=== PATIENT | male | born 1960 | race Caucasian/White ===

== ENCOUNTER 2024-04-06 13:30 | Outpatient (CLI) | payer MEDICARE | END 2024-04-06 13:31 | disposition home or self-care (01) | LOC: CSHWCC 13:30 | PROVIDERS: ATTEND Nurse Practitioner Family | DX: E11.621 Type 2 diabetes mellitus with foot ulcer (principal); L97.512 Non-pressure chronic ulcer of other part of right foot with fat layer exposed; L97.522 Non-pressure chronic ulcer of other part of left foot with fat layer exposed | CPT/HCPCS: 29445 ==

== ENCOUNTER 2024-04-10 08:08 | Outpatient (CLI) | payer MEDICARE | END 2024-04-10 08:09 | disposition home or self-care (01) | LOC: CSHWCC 08:08 | PROVIDERS: ATTEND Nurse Practitioner Family | DX: E11.621 Type 2 diabetes mellitus with foot ulcer (principal); L97.512 Non-pressure chronic ulcer of other part of right foot with fat layer exposed; L97.522 Non-pressure chronic ulcer of other part of left foot with fat layer exposed | CPT/HCPCS: 11042 ==

== ENCOUNTER 2024-04-13 11:22 | Outpatient (CLI) | payer MEDICARE | END 2024-04-13 11:23 | disposition home or self-care (01) | LOC: CSHWCC 11:22 | PROVIDERS: ATTEND Nurse Practitioner Family | DX: E11.621 Type 2 diabetes mellitus with foot ulcer (principal); L97.512 Non-pressure chronic ulcer of other part of right foot with fat layer exposed; L97.522 Non-pressure chronic ulcer of other part of left foot with fat layer exposed | CPT/HCPCS: 29445; G0463; 99213 ==

== ENCOUNTER 2024-04-17 09:44 | Outpatient (CLI) | payer MEDICARE | END 2024-04-17 09:45 | disposition home or self-care (01) | LOC: CSHWCC 09:44 | PROVIDERS: ATTEND Nurse Practitioner Family | DX: E11.621 Type 2 diabetes mellitus with foot ulcer (principal); L97.512 Non-pressure chronic ulcer of other part of right foot with fat layer exposed | CPT/HCPCS: 11042 ==

== ENCOUNTER 2024-04-20 08:47 | Outpatient (CLI) | payer MEDICARE | END 2024-04-20 08:48 | disposition home or self-care (01) | LOC: CSHWCC 08:47 | PROVIDERS: ATTEND Nurse Practitioner Family | DX: E11.621 Type 2 diabetes mellitus with foot ulcer (principal); L97.512 Non-pressure chronic ulcer of other part of right foot with fat layer exposed | CPT/HCPCS: 29445 ==

== ENCOUNTER 2024-04-24 09:46 | Outpatient (CLI) | payer MEDICARE | END 2024-04-24 09:47 | disposition home or self-care (01) | LOC: CSHWCC 09:46 | PROVIDERS: ATTEND Nurse Practitioner Family | DX: E11.621 Type 2 diabetes mellitus with foot ulcer (principal); L97.512 Non-pressure chronic ulcer of other part of right foot with fat layer exposed | CPT/HCPCS: 11042 ==

== ENCOUNTER 2024-04-27 08:32 | Outpatient (CLI) | payer MEDICARE | END 2024-04-27 08:33 | disposition home or self-care (01) | LOC: CSHWCC 08:32 | PROVIDERS: ATTEND Nurse Practitioner Family | DX: E11.621 Type 2 diabetes mellitus with foot ulcer (principal); L97.512 Non-pressure chronic ulcer of other part of right foot with fat layer exposed | CPT/HCPCS: 29445; G0463; 99213 ==

== ENCOUNTER 2024-05-01 14:12 | Outpatient (CLI) | payer MEDICARE | END 2024-05-01 14:13 | disposition home or self-care (01) | LOC: CSHWCC 14:12 | PROVIDERS: ATTEND Nurse Practitioner Family | DX: E11.621 Type 2 diabetes mellitus with foot ulcer (principal); L97.512 Non-pressure chronic ulcer of other part of right foot with fat layer exposed | CPT/HCPCS: 11042 ==

== ENCOUNTER 2024-05-10 08:33 | Outpatient (CLI) | payer MEDICARE | END 2024-05-10 08:34 | disposition home or self-care (01) | LOC: CSHWCC 08:33 | PROVIDERS: ATTEND Nurse Practitioner Family | DX: E11.621 Type 2 diabetes mellitus with foot ulcer (principal); L97.512 Non-pressure chronic ulcer of other part of right foot with fat layer exposed | CPT/HCPCS: 11042 ==

== ENCOUNTER 2024-05-17 11:05 | Outpatient (CLI) | payer MEDICARE | END 2024-05-17 11:06 | disposition home or self-care (01) | LOC: CSHWCC 11:05 | PROVIDERS: ATTEND Nurse Practitioner Family | DX: E11.621 Type 2 diabetes mellitus with foot ulcer (principal); L97.512 Non-pressure chronic ulcer of other part of right foot with fat layer exposed | CPT/HCPCS: 29445; G0463; 99212 ==

== ENCOUNTER 2024-05-24 08:17 | Outpatient (CLI) | payer MEDICARE | END 2024-05-24 08:18 | disposition home or self-care (01) | LOC: CSHWCC 08:17 | PROVIDERS: ATTEND Nurse Practitioner Family | DX: E11.621 Type 2 diabetes mellitus with foot ulcer (principal); L97.512 Non-pressure chronic ulcer of other part of right foot with fat layer exposed | CPT/HCPCS: 29445; G0463; 99212 ==

== ENCOUNTER 2024-06-01 12:36 | Outpatient (CLI) | payer MEDICARE | END 2024-06-01 12:37 | disposition home or self-care (01) | LOC: CSHWCC 12:36 | PROVIDERS: ATTEND Nurse Practitioner Family | DX: E11.621 Type 2 diabetes mellitus with foot ulcer (principal); L97.512 Non-pressure chronic ulcer of other part of right foot with fat layer exposed | CPT/HCPCS: 11042 ==

== ENCOUNTER 2024-06-08 13:26 | Outpatient (CLI) | payer MEDICARE | END 2024-06-08 13:27 | disposition home or self-care (01) | LOC: CSHWCC 13:26 | PROVIDERS: ATTEND Nurse Practitioner Family | DX: E11.621 Type 2 diabetes mellitus with foot ulcer (principal); E11.622 Type 2 diabetes mellitus with other skin ulcer; L97.512 Non-pressure chronic ulcer of other part of right foot with fat layer exposed; L97.812 Non-pressure chronic ulcer of other part of right lower leg with fat layer exposed | CPT/HCPCS: 11042 ==

== ENCOUNTER 2024-06-15 08:21 | Outpatient (CLI) | payer MEDICARE | END 2024-06-15 08:22 | disposition home or self-care (01) | LOC: CSHWCC 08:21 | PROVIDERS: ATTEND Nurse Practitioner Family | DX: E11.621 Type 2 diabetes mellitus with foot ulcer (principal); L97.512 Non-pressure chronic ulcer of other part of right foot with fat layer exposed; E11.622 Type 2 diabetes mellitus with other skin ulcer; L97.812 Non-pressure chronic ulcer of other part of right lower leg with fat layer exposed | CPT/HCPCS: 11042 ==

== ENCOUNTER 2024-06-22 15:03 | Outpatient (CLI) | payer MEDICARE | END 2024-06-22 15:04 | disposition home or self-care (01) | LOC: CSHWCC 15:03 | PROVIDERS: ATTEND Family Medicine | DX: E11.621 Type 2 diabetes mellitus with foot ulcer (principal); L97.512 Non-pressure chronic ulcer of other part of right foot with fat layer exposed; L97.812 Non-pressure chronic ulcer of other part of right lower leg with fat layer exposed | CPT/HCPCS: 11042 ==

== ENCOUNTER 2024-06-29 10:38 | Outpatient (CLI) | payer MEDICARE | END 2024-06-29 10:39 | disposition home or self-care (01) | LOC: CSHWCC 10:38 | PROVIDERS: ATTEND Nurse Practitioner Family | DX: E11.621 Type 2 diabetes mellitus with foot ulcer (principal); L97.512 Non-pressure chronic ulcer of other part of right foot with fat layer exposed | CPT/HCPCS: 29445 ==

== ENCOUNTER 2024-07-06 12:11 | Outpatient (CLI) | payer MEDICARE | END 2024-07-06 12:12 | disposition home or self-care (01) | LOC: CSHWCC 12:11 | PROVIDERS: ATTEND Nurse Practitioner Family | DX: E11.621 Type 2 diabetes mellitus with foot ulcer (principal); L97.512 Non-pressure chronic ulcer of other part of right foot with fat layer exposed | CPT/HCPCS: 29445 ==

== ENCOUNTER 2024-07-13 13:52 | Outpatient (CLI) | payer MEDICARE | END 2024-07-13 13:53 | disposition home or self-care (01) | LOC: CSHWCC 13:52 | PROVIDERS: ATTEND Nurse Practitioner Family | DX: E11.621 Type 2 diabetes mellitus with foot ulcer (principal); L97.512 Non-pressure chronic ulcer of other part of right foot with fat layer exposed | CPT/HCPCS: 99212; G0463 ==

== ENCOUNTER 2025-06-24 10:12 | Inpatient (IN) | payer MEDICARE ==
[2025-06-24 11:50] LABS: #Basophils 0.08 10x3/uL (0.0-0.2); #Eosinophils 0.16 10x3/uL (0.0-0.5); #Monocytes 0.97 10x3/uL (0.0-1.1); #Neutrophils 4.56 10x3/uL (1.5-8.4); %Basophils 1.1 % (0.0-2.0); %Eosinophils 2.2 % (0.0-6.0); %Lymphocytes 19.1 % (18.0-47.0); %Monocytes 13.5 % (0.0-10.0); %Neutrophils 63.3 % (40.0-75.0); Hematocrit 43.8 % (38.8-50.0); Hemoglobin 15.6 g/dL (13.5-17.5); Mean Corpuscular Hemoglobin 32.2 pg (27.0-33.0); Mean Corpuscular Volume 90.3 fL (81.2-95.1); Platelet Count 151 10x3/uL (150-450); Red Blood Cell (RBC) Count 4.85 10x6/uL (4.32-5.72); White Blood Cell (WBC) Count 7.21 10x3/uL (3.5-10.5)
[2025-06-24 11:58] LABS: ALT (SGPT) 34 U/L (Less than 45); AST (SGOT) 44 U/L (11-34); Albumin 4.0 g/dL (3.1-4.5); Alkaline Phosphatase 81 U/L (40-110); Anion Gap 16 mmol/L (10-20); BUN (Urea Nitrogen) 18 mg/dL (8.4-25.7); Bilirubin, Total 0.4 mg/dL (0.3-1.2); Calc. Creatinine Clearance 0 mL/min (70-130); Calcium 9.5 mg/dL (7.8-10.44); Carbon Dioxide 22 mmol/L (23-31); Chloride 103 mmol/L (98-107); Globulin 3.6 g/dL (2.4-3.5); Glucose 190 mg/dL (80-115); Magnesium 1.5 mg/dL (1.6-2.6); Potassium 3.1 mmol/L (3.5-5.1); Sodium 138 mmol/L (136-145)
[2025-06-24] MEDS ORDERED: Ondansetron PF 4 MG/2 ML Vial IVP PRN (14:32)
[2025-06-24] MEDS ORDERED: hydrALAZINE 20 MG/ML VIAL SLOW IVP PRN (14:32)
[2025-06-24] MEDS ORDERED: Senokot S 8.6-50 MG TAB PO PRN (14:32)
[2025-06-24] MEDS ORDERED: Glucagon 1 MG/ML KIT IM PRN (16:13)
[2025-06-24] MEDS ORDERED: Dextrose 50% Abboject 50 ML SYRINGE SLOW IVP PRN (16:13)
[2025-06-24] MEDS ORDERED: Electrolyte Replacement Protocol 1 EACH FS SCH (16:15)
[2025-06-24] MEDS ORDERED: Potassium Chloride 20 MEQ in Premix 1 BAG IVPB PRN (16:30)
[2025-06-24] MEDS ORDERED: PHOS-NAK 1 PKT PACK PO PRN (16:30)
[2025-06-24] MEDS ORDERED: Magnesium Sulfate In Water 4 GM in Premix 1 BAG IVPB PRN (16:30)
[2025-06-24 17:17] LABS: ALT (SGPT) 35 U/L (Less than 45); AST (SGOT) 49 U/L (11-34); Albumin 4.3 g/dL (3.1-4.5); Alkaline Phosphatase 77 U/L (40-110); Anion Gap 16 mmol/L (10-20); BUN (Urea Nitrogen) 14 mg/dL (8.4-25.7); Bilirubin, Total 0.6 mg/dL (0.3-1.2); Calc. Creatinine Clearance 0 mL/min (70-130); Calcium 9.7 mg/dL (7.8-10.44); Carbon Dioxide 25 mmol/L (23-31); Chloride 104 mmol/L (98-107); Globulin 3.8 g/dL (2.4-3.5); Glucose 100 mg/dL (80-115); Potassium 3.1 mmol/L (3.5-5.1); Sodium 142 mmol/L (136-145)
[2025-06-24 17:36] LABS: Syphilis Antibody Index 0.07 S/CO (<1.00 Non-Reactive)
[2025-06-24 18:40] VITALS: BMI 38.1
[2025-06-24] MEDS: Acetaminophen 325 MG TAB PO PRN (20:24)
[2025-06-24] MEDS: Melatonin 3 MG TAB PO PRN (20:25)
[2025-06-25 04:19] LABS: #Basophils 0.07 10x3/uL (0.0-0.2); #Eosinophils 0.17 10x3/uL (0.0-0.5); #Monocytes 0.72 10x3/uL (0.0-1.1); #Neutrophils 3.83 10x3/uL (1.5-8.4); %Basophils 1.1 % (0.0-2.0); %Eosinophils 2.7 % (0.0-6.0); %Lymphocytes 23.0 % (18.0-47.0); %Monocytes 11.5 % (0.0-10.0); %Neutrophils 61.2 % (40.0-75.0); Hematocrit 40.8 % (38.8-50.0); Hemoglobin 14.6 g/dL (13.5-17.5); Mean Corpuscular Hemoglobin 32.4 pg (27.0-33.0); Mean Corpuscular Volume 90.7 fL (81.2-95.1); Platelet Count 149 10x3/uL (150-450); Red Blood Cell (RBC) Count 4.50 10x6/uL (4.32-5.72); White Blood Cell (WBC) Count 6.26 10x3/uL (3.5-10.5)
[2025-06-25 04:26] LABS: Anion Gap 15 mmol/L (10-20); BUN (Urea Nitrogen) 13 mg/dL (8.4-25.7); Calc. Creatinine Clearance 208 mL/min (70-130); Calcium 9.1 mg/dL (7.8-10.44); Carbon Dioxide 27 mmol/L (23-31); Cardiac Risk 6.0 (Less than 4.5); Chloride 100 mmol/L (98-107); Cholesterol 179 mg/dl (< 200 Desired); Glucose 142 mg/dL (80-115); HDL Cholesterol 30 mg/dL (>60 Neg Risk); Potassium 2.8 mmol/L (3.5-5.1); Sodium 139 mmol/L (136-145); Triglycerides 546 mg/dL (Less than 150)
[2025-06-25] MEDS ORDERED: Magnesium 2 GM/50 ML(in water) 2 GM in Premix 1 BAG IVPB PRN (06:05)
[2025-06-25] MEDS: Multivit, Therapeutic 1 TAB PO SCH (09:07)
[2025-06-25] MEDS: Folic Acid 1 MG TAB PO SCH (09:07)
[2025-06-25] MEDS ORDERED: Iopamidol 370 76% 100 ML VIAL ONE (10:38)
[2025-06-25] MEDS: Aspirin 81 mg Enteric Coated Tablet PO SCH (12:14)
[2025-06-25] MEDS: Valsartan 80 MG TAB PO SCH (12:14)
[2025-06-25] MEDS: Lantus 1000 UNITS/10 ML VIAL SC SCH (12:15)
[2025-06-25] MEDS: NIFEdipine XL 30 MG ER.TAB PO SCH (15:59)
[2025-06-26 07:26] LABS: #Basophils 0.06 10x3/uL (0.0-0.2); #Eosinophils 0.15 10x3/uL (0.0-0.5); #Monocytes 0.72 10x3/uL (0.0-1.1); #Neutrophils 3.52 10x3/uL (1.5-8.4); %Basophils 1.1 % (0.0-2.0); %Eosinophils 2.7 % (0.0-6.0); %Lymphocytes 20.4 % (18.0-47.0); %Monocytes 12.7 % (0.0-10.0); %Neutrophils 62.2 % (40.0-75.0); Hematocrit 43.0 % (38.8-50.0); Hemoglobin 15.3 g/dL (13.5-17.5); Mean Corpuscular Hemoglobin 32.6 pg (27.0-33.0); Mean Corpuscular Volume 91.7 fL (81.2-95.1); Platelet Count 162 10x3/uL (150-450); Red Blood Cell (RBC) Count 4.69 10x6/uL (4.32-5.72); White Blood Cell (WBC) Count 5.65 10x3/uL (3.5-10.5)
[2025-06-26 08:11] LABS: Anion Gap 15 mmol/L (10-20); BUN (Urea Nitrogen) 17 mg/dL (8.4-25.7); Calc. Creatinine Clearance 188 mL/min (70-130); Calcium 9.4 mg/dL (7.8-10.44); Carbon Dioxide 26 mmol/L (23-31); Chloride 102 mmol/L (98-107); Glucose 174 mg/dL (80-115); Magnesium 1.8 mg/dL (1.6-2.6); Potassium 3.3 mmol/L (3.5-5.1); Sodium 140 mmol/L (136-145)
[2025-06-26] MEDS: Aspirin 81 mg Enteric Coated Tablet PO SCH (08:42)
[2025-06-26] MEDS: NIFEdipine XL 60 MG ER.TAB PO SCH (08:42)
[2025-06-26] MEDS: Valsartan 80 MG TAB PO SCH (08:43)
[2025-06-26] MEDS ORDERED: DULoxetine 30 MG CAP PO SCH (10:30)
[2025-06-26] MEDS ORDERED: Carvedilol 12.5 MG TAB PO SCH ×2 (10:30→17:00)
[2025-06-26] MEDS: Carvedilol 12.5 MG TAB PO SCH ×2 (12:13→17:27)
[2025-06-26] MEDS: Pantoprazole 40 MG DR.TAB PO SCH (13:08)
[2025-06-26 13:51] LABS: Potassium 3.6 mmol/L (3.5-5.1)
[2025-06-26] MEDS: Acetaminophen/Codeine 30-300mg Tablet PO PRN (17:26)
[2025-06-27 05:12] LABS: #Basophils 0.07 10x3/uL (0.0-0.2); #Eosinophils 0.15 10x3/uL (0.0-0.5); #Monocytes 0.94 10x3/uL (0.0-1.1); #Neutrophils 4.59 10x3/uL (1.5-8.4); %Basophils 1.0 % (0.0-2.0); %Eosinophils 2.1 % (0.0-6.0); %Lymphocytes 20.6 % (18.0-47.0); %Monocytes 12.9 % (0.0-10.0); %Neutrophils 63.0 % (40.0-75.0); Hematocrit 41.5 % (38.8-50.0); Hemoglobin 14.6 g/dL (13.5-17.5); Mean Corpuscular Hemoglobin 32.5 pg (27.0-33.0); Mean Corpuscular Volume 92.4 fL (81.2-95.1); Platelet Count 144 10x3/uL (150-450); Red Blood Cell (RBC) Count 4.49 10x6/uL (4.32-5.72); White Blood Cell (WBC) Count 7.28 10x3/uL (3.5-10.5)
[2025-06-27 05:29] LABS: Anion Gap 14 mmol/L (10-20); BUN (Urea Nitrogen) 23 mg/dL (8.4-25.7); Calc. Creatinine Clearance 148 mL/min (70-130); Calcium 9.5 mg/dL (7.8-10.44); Carbon Dioxide 27 mmol/L (23-31); Chloride 102 mmol/L (98-107); Glucose 160 mg/dL (80-115); Potassium 3.8 mmol/L (3.5-5.1); Sodium 139 mmol/L (136-145)
[2025-06-27] MEDS: DULoxetine 30 MG CAP PO SCH (09:02)
[2025-06-27] MEDS: Pantoprazole 40 MG DR.TAB PO SCH (09:03)
[2025-06-27] MEDS: Carvedilol 12.5 MG TAB PO SCH (10:54)
[2025-06-27] MEDS: Thiamine 100 MG TAB PO SCH (15:55)
[2025-06-27 16:12] VITALS: BP 158/96; TEMP 97.8
[2025-06-27] MEDS ORDERED: Carvedilol 25 MG TAB PO SCH (17:00)
== END 2025-06-27 16:42 | disposition left against medical advice (07) | DRG 312 ==
LOC: CSHERS 10:12 → CSHERHOLD 13:11 → CSHTELE 17:54 → OBSVTOIN 06-25 14:34
PROVIDERS: ADMIT Family Medicine; ATTEND Internal Medicine
PROC: 5A09457 Assistance with Respiratory Ventilation, 24-96 Consecutive Hours, Continuous Positive Airway Pressure (ICD-10-PCS; principal; 2025-06-26)
DX: R55 Syncope and collapse (principal); I10 Essential (primary) hypertension; E11.9 Type 2 diabetes mellitus without complications; E78.5 Hyperlipidemia, unspecified; K21.9 Gastro-esophageal reflux disease without esophagitis; E66.9 Obesity, unspecified; Z53.29 Procedure and treatment not carried out because of patient's decision for other reasons; Z88.2 Allergy status to sulfonamides; Z79.4 Long term (current) use of insulin; Z79.82 Long term (current) use of aspirin; Z79.899 Other long term (current) drug therapy; Z68.38 Body mass index [BMI] 38.0-38.9, adult
CPT/HCPCS: 36415; 36416; 70450; 70496; 70498; 70551; 71045; 72125; 80048; 80053; 80061; 83735; 84100; 85025; 86780; 93005; 93306; 94660; J1815; J3411; Q9967

== ENCOUNTER 2025-07-03 12:47 | Emergency (ER) | payer MEDICARE ==
[2025-07-03 13:56] LABS: Actual Bicarbonate (HCO3v) 25.1 mEq/L (22-28); Analyzer IN Cardio CS ER; Base Excess 0.6 mEq/L (-2 - +2); Calcium, Ionized (venous) 1.13 mmol/L (1.16-1.32); Chloride (VBG) 99 mmol/L (98-106); Critical Notified By: clumpkins rt; Hematocrit-VBG 51 % (42.0-52.0); Hemoglobin (Hb) 17.3 g/dL (13.1-17.2); Potassium (VBG) 3.62 mmol/L (3.70-5.30); Puncture Site Other Site; Sodium 143 mmol/L (133-146)
[2025-07-03 14:35] LABS: #Basophils 0.07 10x3/uL (0.0-0.2); #Eosinophils 0.05 10x3/uL (0.0-0.5); #Monocytes 0.91 10x3/uL (0.0-1.1); #Neutrophils 6.57 10x3/uL (1.5-8.4); %Basophils 0.8 % (0.0-2.0); %Eosinophils 0.6 % (0.0-6.0); %Lymphocytes 12.6 % (18.0-47.0); %Monocytes 10.4 % (0.0-10.0); %Neutrophils 75.1 % (40.0-75.0); Hematocrit 44.4 % (38.8-50.0); Hemoglobin 16.1 g/dL (13.5-17.5); Mean Corpuscular Hemoglobin 32.6 pg (27.0-33.0); Mean Corpuscular Volume 89.9 fL (81.2-95.1); Platelet Count 216 10x3/uL (150-450); Red Blood Cell (RBC) Count 4.94 10x6/uL (4.32-5.72); White Blood Cell (WBC) Count 8.74 10x3/uL (3.5-10.5)
[2025-07-03 14:53] LABS: ALT (SGPT) 34 U/L (Less than 45); AST (SGOT) 46 U/L (11-34); Albumin 4.3 g/dL (3.1-4.5); Alkaline Phosphatase 77 U/L (40-110); Anion Gap 17 mmol/L (10-20); BUN (Urea Nitrogen) 12 mg/dL (8.4-25.7); Bilirubin, Total 0.8 mg/dL (0.3-1.2); Calc. Creatinine Clearance 0 mL/min (70-130); Calcium 9.7 mg/dL (7.8-10.44); Carbon Dioxide 24 mmol/L (23-31); Chloride 100 mmol/L (98-107); Globulin 4.0 g/dL (2.4-3.5); Glucose 130 mg/dL (80-115); Potassium 3.4 mmol/L (3.5-5.1); Sodium 138 mmol/L (136-145)
[2025-07-03 15:02] LABS: Troponin I 0.010 ng/mL (< 0.028)
[2025-07-03] MEDS ORDERED: Oseltamivir 75 MG CAP ONE (15:10)
== END 2025-07-03 18:29 ==
LOC: CSHERS 12:47
DX: I63.9 Cerebral infarction, unspecified (principal); J11.1 Influenza due to unidentified influenza virus with other respiratory manifestations; I10 Essential (primary) hypertension; E11.40 Type 2 diabetes mellitus with diabetic neuropathy, unspecified; F17.220 Nicotine dependence, chewing tobacco, uncomplicated
CPT/HCPCS: 36415; 70450; 71045; 80053; 82805; 83880; 84484; 85025; 87428; 93005